=== PATIENT | male | born 2005 | race Hispanic/Latino ===

== ENCOUNTER 2023-07-29 16:36 | Emergency (ER) | payer OTHER ==
[~2023-07-29] VITALS: Ht 188 cm; Wt 84.1 kg
[2023-07-29 16:37] VITALS: BP 132/63; TEMP 99.2; O2SAT 100
[2023-07-29] MEDS: ACETAMINOPHEN 500 MG TAB PO ONE (17:30)
== END 2023-07-29 18:11 | disposition home or self-care (01) ==
LOC: M ED 16:36
DX: S93.402A Sprain of unspecified ligament of left ankle, initial encounter (principal); Y92.9 Unspecified place or not applicable; Y93.67 Activity, basketball; Y99.9 Unspecified external cause status